=== PATIENT | male | born 1990 | race Caucasian/White ===

== ENCOUNTER 2017-05-15 11:28 | Inpatient (IN) | payer OTHER ==
[~2017-05-15] VITALS: Ht 172.7 cm; Wt 61.2 kg
[2017-05-15 13:00] VITALS: BP 124/75
--- NOTE | 2017-05-15 13:08 | NUR ---
INTAKE ASSESSMENT NOTE Patient is alert and orientated X4, stable and able to ambulate independently.Vitals signs are stable BP 124/75 HR 96 R 18 O2 99 TEMP 96.8. Patient is allergic to Trazodone. No history of seizures. Home medications brought with him (clonidine, escitalopram, and Elfolate). Patient is stable to come to the unit. Explanation of rules and protocols were explained. Patient verbalized understand.
--- NOTE | 2017-05-15 13:20 | NUR ---
ADMISSION NOTE VS:BP-124/75 P-96 T-96.1 O2-99 R-18 HEIGHT-5'8" WEIGHT -175 LB ALLERGIES-TRAZODONE Patient is a 26 year old male admitted to [facility] on 05/15/17 at 1308. patient is under the care of Dr. Benavides for opiate and benzo dependence. patient denies suicidal and homicidal ideations at this time. Patient denies being hospitalized in the past 30 days. patient denies chest pain and SOB> Patient reports using methamphetamine, heroin, phenibut, Xanax, and cocaine. upon assessment pts skin is intact. CIWA 13 COWS 16upon admission. patient has allergy to trazodone. He is alert and orientated X4 and steve to answer questions necessary for the admission process. Pt is a full code. Vital signs WNL, regular diet. Patient denies having seizures. patient denies having a PCP. Breathing is even and unlabored, spO2 is 99% on RA. Pt ambulates with a steady gait, pt reports feeling very tired and body aches. Patient has been living alone in a motel recently. Patient has a history of anxiety and depression. Patient refuses any vaccination. pt smokes approximately [address] benavides has been notified and has placed the client under observation. all needs have been met. pt has been orientated to room and unit. all safety measures in place per hospital policy. bed in lowest position, side rails up X2 and padded, call light within reach. will continue to monitor. SUBSTANCE ABUSE: meth 1 grm used for 2 year, last used 05/15/17 heroin 1 gram used for 10 years, last used 05/14/17 phenibut 15 gram for the past 8 years off/on last used 05/15/17 xanax 2 gm used on and off for the past few weeks, last used 05/14/17 cocaine one line, off/on for the past few years, last used 05/11/17
[2017-05-15] MEDS ORDERED: ESCI10TA PO (13:34)
[2017-05-15] MEDS ORDERED: LEVO15TA7 PO (13:34)
[2017-05-15] MEDS ORDERED: CLON0.1T PO (13:34)
[2017-05-15] MEDS ORDERED: GABA600T2 PO (13:37)
[2017-05-15] MEDS ORDERED: LORAZEPAM 1 MG TABLET PO PRN (13:45)
[2017-05-15] MEDS ORDERED: diphenhydrAMINE 50 MG CAPSULE PO PRN (13:45)
[2017-05-15] MEDS ORDERED: LORAZEPAM 2 MG/1 ML VIAL IM PRN (13:45)
[2017-05-15] MEDS ORDERED: THIAMINE HCL 200 MG/2 ML VIAL IM ONE (13:45)
[2017-05-15] MEDS ORDERED: MIRALAX 17 GM POWD.PACK PO PRN (13:45)
[2017-05-15] MEDS ORDERED: LOPERAMIDE HCL 2 MG CAPSULE PO PRN ×2 (13:45)
[2017-05-15] MEDS ORDERED: ACETAMINOPHEN 325 MG TABLET PO PRN (13:45)
[2017-05-15] MEDS ORDERED: MAG HYDROX/AL HYDROX/SIMETH 30 ML LIQUID UDC PO PRN (13:45)
[2017-05-15] MEDS ORDERED: ONDANSETRON 4 MG/2 ML VIAL IM PRN (13:45)
[2017-05-15] MEDS ORDERED: MAGNESIUM HYDROXIDE 30 ML LIQUID UDC PO PRN (13:45)
[2017-05-15 14:03] LABS: *AMPHETAMINE, URINE POSITIVE (NEGATIVE); *BARBITURATE, URINE NEGATIVE (NEGATIVE); *CANNABINOID, URINE NEGATIVE (NEGATIVE); *COCCAINE, URINE NEGATIVE (NEGATIVE); *OPIATE, URINE POSITIVE (NEGATIVE); *PHENCYCLIDINE SCREEN,URINE NEGATIVE (NEGATIVE)
[2017-05-15] MEDS: BACLOFEN 10 MG TABLET PO SCH ×2 (14:29→16:44)
[2017-05-15] MEDS: LORAZEPAM 1 MG TABLET PO SCH ×3 (14:29→20:09)
[2017-05-15] MEDS ORDERED: LIDOCAINE VISCUS 2% 15 ML UDC MM PRN (14:30)
[2017-05-15] MEDS: BUPRENORPHINE HCL 2 MG TAB.SUBL SL PRN ×3 (14:35→22:39)
--- NOTE | 2017-05-15 14:35 | NUR ---
PRN MEDICATION Patient given subutex 4mg for a COWS of 16. patient complaining of body aches and extremely anxious. will continue to monitor.
[2017-05-15 14:48] LABS: BASOPHILS % (AUTO) 0.7 % (0.0-2.0); EOSINOPHILS % (AUTO) 0.3 % (0.0-7.0); HEMATOCRIT 45.5 % (40-50); HEMOGLOBIN 15.3 G/DL (14.0-18.0); LYMPHOCYTES # (AUTO) 1.5 K/UL (0.8-4.8); LYMPHOCYTES % (AUTO) 22.8 % (20.5-51.5); MEAN CORPUSCULAR HEMOGLOBIN 30.5 UUG (27.0-31.0); MEAN CORPUSCULAR HGB CONC 34 g/dL (32.0-37.0); MEAN CORPUSCULAR VOLUME 90.7 FL (82.0-92.0); MONOCYTES # (AUTO) 0.5 K/UL (0.1-1.30); MONOCYTES % (AUTO) 7.1 % (0.0-11.0); NEUTROPHILS # (AUTO) 4.6 K/UL (1.8-8.9); NEUTROPHILS % (AUTO) 69.1 % (38.5-71.5); PLATELET COUNT (AUTO) 213 K/UL (150-450); RED BLOOD CELL COUNT(AUTO) 5.02 MIL/UL (4.7-6.1); WHITE BLOOD COUNT (AUTO) 6.6 K/UL (4.0-11.2)
[2017-05-15 14:59] LABS: ALANINE AMINOTRANSFERASE 33 U/L (16-63); ALKALINE PHOSPHATASE 83 U/L (50-136); ASPARTATE AMINOTRANSFERASE 27 U/L (15-37); BILIRUBIN,TOTAL 0.6 mg/dL (0.2-1.0); CARBON DIOXIDE 29 mmol/L (21-32); CHLORIDE 103 mmol/L (98-107); GLUCOSE 68 mg/dL (74-106); MAGNESIUM 2.1 mg/dL (1.8-2.4); POTASSIUM 3.8 mmol/L (3.5-5.1); TOTAL PROTEIN, SERUM 7.5 g/dL (6.4-8.2); UREA NITROGEN, BLOOD 12 mg/dL (7-18)
--- NOTE | 2017-05-15 15:05 | NUR ---
REASSESSMENT OF PRN MEDICATION Patient feeling less anxious. COWS remains at 16. will continue to monitor and give scheduled medications.
[2017-05-15 15:10] LABS: THYROID STIMULATING HORMONE 0.107 mIU/mL (0.358-3.740)
[2017-05-15 15:31] LABS: ETHANOL < 3 MG/DL (0-0)
[2017-05-15 16:00] VITALS: BP 132/60
--- NOTE | 2017-05-15 18:22 | NUR ---
PRN administration Pt noted to have a COWS of 16 and CIWA of 20. Administered PRN subutex and PRN ativan per MD order. Dr Salvador notified. Will continue to monitor pt.
[2017-05-15] MEDS: LORAZEPAM 1 MG TABLET PO PRN ×2 (18:24→22:33)
--- NOTE | 2017-05-15 19:06 | NUR ---
END OF SHIFT NOTE Patient is a 26 year old male admitted today around 1330. Patient is alert and orientated X4. He was admitted for detox from: meth, heroin, phenibut, Xanax, and cocaine. Vital signs have been stable throughout the day. Last COWS 16 CIWA 20. Patient expresses he has been hearing non-threatening voices. Subutex X2 and Ativan given for high COWS/CIWA. DR. Salvador notified. Patient is having moderate withdrawals as evidence of COWA/COWS scores. Patient is resting in bed. States he "hasn't slept in days". Patient is complaint with MDs orders and medications. Patient was seen by Dr. Salvador. All safety measures in place, call light within reach, bed locked and in lowest position. Patient denies any suicidal or homicidal thoughts. Will endorse to oncoming nurse.
--- NOTE | 2017-05-15 19:15 | NUR ---
START OF SHIFT Received 26 year old male patient admitted on 05/15/17 for Xanax, Phenibut, Heroin , Meth and Cocaine dependency. Pt is full code with allergy to Trazodone. He reports a PMHx of suicide attempt 3 years ago and MRSA in blood from [facility]. Pt reports using Xanax 2 gram daily for a few years. Last dose 05/14/17, Phenibut 15 grams daily for 8 years. Last dose 05/14/17. Heroin 1 gram daily for 10 years. Last dose 05/14/17. Methamphetamine 1 gram daily for 2 years. Last dose 05/15/17. And cocaine 1 line on and off for a few years. Last dose 05/11/17. Per endorsement, pt received Ativan and Subutex x2 for increased COWS of 16 and CIWA: 12. PT reported slight visual/auditory hallucinations but reports medications are effective in relieving symptoms. Pt is alert and oriented x4, breathing is even and unlabored. Safety measures in place. Will continue to monitor.
[2017-05-15 20:00] VITALS: BP 116/74
[2017-05-15] MEDS: CLONIDINE HCL 0.1 MG TABLET PO PRN (20:10)
--- NOTE | 2017-05-15 20:10 | NUR ---
PRN CLONIDINE Pt complains of anxiety, agitation, chills and sweats. PRN Clonidine administered as ordered. Breathing is even and unlabored. Respirations 16. Safety measures in place. Will monitor effectiveness.
--- NOTE | 2017-05-15 20:26 | NUR ---
PRN BENADRYL Pt complains of inability to sleep. PRN Benadryl administered as ordered. Breathing even and unlabored, safety measures in place. Will monitor effectiveness.
[2017-05-15] MEDS ORDERED: BUPRENORPHINE HCL 2 MG TAB.SUBL SL SCH (21:00)
--- NOTE | 2017-05-15 21:10 | NUR ---
PRN CLONIDINE REASSESSMENT Pt reports clonidine somewhat effective. Pt still reports anxiety/agitation. Respirations 16, breathing even and unlabored, safety measures in place. Will monitor.
--- NOTE | 2017-05-15 21:26 | NUR ---
PRN BENADRYL REASSESSMENT PRN Benadryl ineffective. Pt still awake but observed to be drowsy. Breathing is even and unlabored, safety measures in place. Will monitor.
--- NOTE | 2017-05-15 22:39 | NUR ---
PRN ATIVAN/SUBUTEX Pt complains of body aches, chills, and agitation. Pt observed with fine tremors and flushed face. PRN Ativan2 mg and Subutex 4 mg administered for COWS:13, CIWA:16. Breathing even and unlabored, safety measures in place. Will continue to monitor.
--- NOTE | 2017-05-15 23:39 | NUR ---
PRN ATIVAN/SUBUTEX REASSESSMENT PRN medications effective in relieving withdrawal symptoms as evidenced by decrease in COWS:9, CIWA:12. Pt still reports body aches and noted with fine tremors. Breathing is even and unlabored, safety measures in place. Will continue to monitor.
[2017-05-16] VITALS: BP 127/75
[2017-05-16 04:00] VITALS: BP 112/72
--- NOTE | 2017-05-16 04:00 | NUR ---
COWS/CIWA DEFERRED COWS/CIWA deferred d/t pt lying in bed with eyes closed noted to be asleep. Respirations 18, breathing is even and unlabored. Safety measures in place. Will continue to monitor.
--- NOTE | 2017-05-16 07:18 | NUR ---
END OF SHIFT Pt is a 26 year old male patient admitted on 05/15/17 for Xanax, Phenibut, Heroin , Meth and Cocaine dependency. Pt is full code with allergy to Trazodone. He reports a PMHx of suicide attempt 3 years ago and MRSA in blood from [facility]. At 2009 pt received PRN Clonidine for complaints of anixety, chills and sweats. At 2025 he received PRN Benadryl for inability to fall asleep. At 2238 he received PRN Subutex and Ativan for COWS:13, CIWA 16. He slept a total of 5hrs, Intake:1446mL Void:x2 BM:0 COWS:9, CIWA: 12. Pt remains alert and oriented x4, breathing is even and unlabored. Safety measures in place. Endorsed to oncoming shift.
--- NOTE | 2017-05-16 07:55 | NUR ---
START OF SHIFT: RECEIVED PT LAYING IN BED ASLEEP. RESPIRATIONS EVEN AND UNLABORED. PT ASKING TO LET HIM SLEEP. CALL SMITH IN REACH. BED LOCKED AND LOW . WILL CONTINUE TO MONITOR.
[2017-05-16 08:00] VITALS: BP 109/75
[2017-05-16] MEDS: BUPRENORPHINE HCL 2 MG TAB.SUBL SL SCH ×3 (09:00→21:29)
[2017-05-16] MEDS: THIAMINE HCL 100 MG TABLET PO SCH (09:00)
[2017-05-16] MEDS ORDERED: TUBERCULIN,PURIF.PROT.DERIV. 5 TU/0.1 ML TEST ID ONE ×2 (09:00→13:00)
[2017-05-16] MEDS: DOCUSATE SODIUM 250 MG CAPSULE PO SCH (09:00)
[2017-05-16] MEDS: MULTIVITAMINS,THERAPEUTIC TABLET PO SCH (09:00)
[2017-05-16] MEDS: LORAZEPAM 1 MG TABLET PO SCH ×3 (09:00→21:28)
[2017-05-16] MEDS: FOLIC ACID 1 MG TABLET PO SCH (09:00)
[2017-05-16] MEDS: BACLOFEN 10 MG TABLET PO SCH ×3 (09:00→17:45)
--- NOTE | 2017-05-16 09:05 | NUR ---
COWS AND CIWA DEFERRED. 0900 MEDS HELD PT IS ASLEEP.
[2017-05-16] MEDS ORDERED: LORAZEPAM 1 MG TABLET PO ONE (11:15)
[2017-05-16] MEDS ORDERED: BUPRENORPHINE HCL 2 MG TAB.SUBL SL ONE ×2 (11:15→15:45)
[2017-05-16 12:00] VITALS: BP 119/66
--- NOTE | 2017-05-16 13:00 | NUR ---
PT C/O ANXIETY,RESTLESSNESS ,SWEATS,BODY ACHES AND IRRITABILITY COWS 21 CIWA 10. MEDICATED PT WITH ONE TIME ORDER PER MD SINCE HE MISSED AM MEDS. ENCOURAGED FLUIDS AND REST. WILL CONTINUE TO MONITOR AND OFFER SUPPORT.
--- NOTE | 2017-05-16 15:53 | NUR ---
Therapist informed client of daily group psychotherapy times (11am and 3:30pm). Client expressed that he would consider attending.
[2017-05-16 16:00] VITALS: BP 130/79
--- NOTE | 2017-05-16 17:30 | NUR ---
ONE TIME ORDER FOR SUBUTEX SL PER MD PT SWALLOWED SUBUTEX INSTEAD OF LETTING IT DISSOLVE UNDER HIS TONGUE. PT STATE HE FEELS LIKE HE IS "FALLING A PART" POOR EYE CONTACT NOTED.OFFERED SUPPORT. WILL CONTINUE TO MONITOR
[2017-05-16] MEDS ORDERED: LORAZEPAM 1 MG TABLET PO PRN ×2 (18:00)
--- NOTE | 2017-05-16 19:11 | NUR ---
END OF SHIFT: PT SPENT SHIFT IN BED SLEEPING ON AND OFF. HE ATE VERY LITTLE BUT WAS COMPLIANT WITH INCREASED FLUIDS. HE IS TREMULOUS AND FLUSHED. HIS EYES ARE PARTIALLY CLOSED AND NODS OFF DURING CONVERSATION AND INSISTS HE IS NOT BEING MEDICATED ENOUGH FOR HIS S/S OF W/D. LAST COWS 13 CIWA 9. OFFERED SUPPORT. MADE AWARE OF PT'S COMPLAINTS. WILL PASS SHIFT REPORT TO ONCOMING COMMERCIAL ATTORNEY.
--- NOTE | 2017-05-16 19:15 | NUR ---
START OF SHIFT NOTE : Pt. is 26 year old male patient admitted on 05/15/17 for Xanax, Phenibut, Heroin , Meth and Cocaine dependency. Pt is full code with allergy to Trazodone. He reports a PMHx of suicide attempt 3 years ago and MRSA in blood from [facility]. PT reported slight visual/auditory hallucinations in the past but reports medications are effective in relieving symptoms. Pt is alert and oriented x4, RR=16, breathing is even and unlabored. PT SPENT SHIFT IN BED SLEEPING ON AND OFF. HE ATE VERY LITTLE BUT WAS COMPLIANT WITH INCREASED FLUIDS. HE IS TREMULOUS AND FLUSHED. HIS EYES ARE PARTIALLY CLOSED AND NODS OFF DURING CONVERSATION AND INSISTS HE IS NOT BEING MEDICATED ENOUGH FOR HIS S/S OF W/D. Safety measures in place. call light kept within reach. patient endorsed to hand spray operator nurse, all pertinent information discussed. will continue to monitor closely.
[2017-05-16 20:00] VITALS: BP 104/69
--- NOTE | 2017-05-16 21:00 | NUR ---
PRN SEROQUEL Pt complains of inability to sleep. PRN SEROQUEL administered as ordered. Safety measures in place. call light kept within reach. patient endorsed to employment legal assistant nurse, all pertinent information discussed. will continue to monitor closely.
[2017-05-16] MEDS: QUETIAPINE FUMARATE 100 MG TABLET PO PRN (21:28)
--- NOTE | 2017-05-16 22:00 | NUR ---
REASSESSMENT SEROQUEL Pt . is sleeping, RR=16, unlabored and even. safety measures in place. Will monitor effectiveness. Safety measures in place. call light kept within reach. patient endorsed to warehouse supervisor 3rd shift nurse, all pertinent information discussed. will continue to monitor closely.
--- NOTE | 2017-05-17 06:40 | NUR ---
END OF SHIFT NOTE : Pt. is 26 year old male patient admitted on 05/15/17 for Xanax, Phenibut, Heroin , Meth and Cocaine dependency. Pt is full code with allergy to Trazodone. He reports a PMHx of suicide attempt 3 years ago and MRSA in blood from [facility]. PT reported slight visual/auditory hallucinations in the past but reports medications are effective in relieving symptoms. Pt is alert and oriented x4, RR=16, breathing is even and unlabored. PT. WAS COMPLIANT WITH INCREASED FLUIDS. HIS EYES ARE PARTIALLY CLOSED AND NODS OFF DURING CONVERSATION . Pt remains compliant with the treatment plan. PRN SEROQUEL given during my shift. V/S remain WNL. RR=16, even and unlabored, lungs clear upon auscultation, abdomen soft and non- distended. Pt denies nausea, vomiting and diarrhea. LAST CIWA= 4 ,COWS=5 at 0400 , UIVMBE=1531 ml, voided x 2, slept 9 hours. Safety measures in place. call light kept within reach. patient endorsed to coin machine operator nurse, all pertinent information discussed. will continue to monitor closely.
--- NOTE | 2017-05-17 07:05 | NUR ---
Start of Shift Endorsement received from nightshift nurse. Pt is a 26 y/o male admitted for methamphetamine, heroin and phenobarbital dependence. Pt has been placed on a 5 day Ativan and 5 day Subutex taper. Pt is mildly withdrawing at this time AEB CIWA 4, COWS 5. Pt received PRN Seroquel during nightshift. VS WNL. Full Code. PT is alert and oriented x4. Pt is in STABLE condition at this time. Remains compliant with medication and diet regimen. All needs have been met, All safety measures in place per hospital policy. Bed in lowest position, side rails up x2, call-light within reach. Will continue to monitor
[2017-05-17 08:00] VITALS: BP 96/62
[2017-05-17 08:06] LABS: HEPATITIS B SURFACE AG Negative (Negative)
[2017-05-17] MEDS: MULTIVITAMINS,THERAPEUTIC TABLET PO SCH (08:53)
[2017-05-17] MEDS: BACLOFEN 20 MG TABLET PO SCH ×4 (08:53→20:27)
[2017-05-17] MEDS: DOCUSATE SODIUM 250 MG CAPSULE PO SCH (08:53)
[2017-05-17] MEDS: FOLIC ACID 1 MG TABLET PO SCH (08:53)
[2017-05-17] MEDS: THIAMINE HCL 100 MG TABLET PO SCH (08:53)
[2017-05-17] MEDS: LORAZEPAM 1 MG TABLET PO SCH ×4 (08:54→20:27)
[2017-05-17] MEDS ORDERED: BUPRENORPHINE HCL 2 MG TAB.SUBL SL SCH (09:00)
[2017-05-17] MEDS ORDERED: BACLOFEN 10 MG TABLET PO SCH (09:00)
--- NOTE | 2017-05-17 10:28 | NUR ---
Therapist advised client of group times. Client reported he will not be going today because he is still feeling sick.
[2017-05-17 12:00] VITALS: BP 113/75
[2017-05-17] MEDS ORDERED: IV D5W-0.45% NS 1000 ML BAG IV SCH (12:30)
[2017-05-17] MEDS ORDERED: LORAZEPAM 1 MG TABLET PO PRN ×2 (12:30)
[2017-05-17] MEDS ORDERED: BACLOFEN 20 MG TABLET PO SCH (13:00)
--- NOTE | 2017-05-17 13:07 | NUR ---
PRN Medications Administered PRN Motrin, Clonidine and Bentyl for cold chills, sweats, body aches and stomach cramps. Will re-assess.
[2017-05-17] MEDS: DICYCLOMINE HCL 20 MG TABLET PO PRN (13:10)
[2017-05-17] MEDS: CLONIDINE HCL 0.1 MG TABLET PO PRN (13:10)
[2017-05-17] MEDS: IBUPROFEN 600 MG TABLET PO PRN (13:10)
--- NOTE | 2017-05-17 13:37 | NUR ---
Medication re-assessment Medication were partially effective, PT rates pain 4/10 down from 7/10 before. PT reports that chills and sweats have not stopped. MD has been notified.
[2017-05-17] MEDS: BUPRENORPHINE HCL 2 MG TAB.SUBL SL SCH ×2 (15:07→20:26)
--- NOTE | 2017-05-17 15:23 | NUR ---
PRN Ativan Pt reports anxiety and upon evaluation has CIWA score of 7. Administered Ativan 1mg per protocol. Upon farther assessment the pt appears confused about where he is and reports not remembering eating lunch or receiving any medications. MD has been notified.
--- NOTE | 2017-05-17 15:45 | NUR ---
Pt re-assessment Pt reports decrease in anxiety to mild from moderate 6/10. PT recalls where he is but does not know what day of the week it is. Reinforced pt on medications he received and the medication schedule. PT able to do addition but not subtraction.
[2017-05-17 16:00] VITALS: BP 128/77
[2017-05-17] MEDS: GABAPENTIN 300 MG CAPSULE PO SCH ×2 (17:08→20:26)
[2017-05-17] MEDS: ESCITALOPRAM OXALATE 10 MG TABLET PO SCH (17:08)
--- NOTE | 2017-05-17 18:58 | NUR ---
End of Shift Endorsement given to nightshift nurse. Pt is a 26 y/o male admitted for methamphetamine, heroin and phenobarbital dependence. Pt has been placed on a 5 day Ativan and 5 day Subutex taper. Pt is moderately withdrawing at this time AEB CIWA 7, COWS 10. Pt received PRN Motrin, Clonidine, Ativan 1mg, Bentyl. PT has also started on Lexapro 10mg daily and 600mg Gabapentin x4 daily per Dr. Roy. Pt complains of body aches and requests more Subutex for his withdrawal symptoms. Dr. Salvador is aware. Intake: 1500ml, Void 3, BM x0. Pt did not participate in groups or activities. Educated pt on medication S/E and diet regimen. Encouraged pt to drink more fluids. VS WNL. Full Code. PT is alert and oriented x2. Pt is in STABLE condition at this time. Remains compliant with medication and diet regimen. All needs have been met, All safety measures in place per hospital policy. Bed in lowest position, side rails up x2, call-light within reach. Will continue to monitor
--- NOTE | 2017-05-17 19:15 | NUR ---
START OF SHIFT NOTE : Pt. is 26 year old male patient admitted on 05/15/17 for Xanax, Phenibut, Heroin , Meth and Cocaine dependency. Pt is full code with allergy to Trazodone. He reports a PMHx of suicide attempt 3 years ago and MRSA in blood from [facility]. PT reported slight visual/auditory hallucinations in the past but reports medications are effective in relieving symptoms. Pt is alert and oriented x3 (name, place, partially time), RR=16, breathing is even and unlabored. HE ATE VERY LITTLE BUT WAS COMPLIANT WITH INCREASED FLUIDS. HIS EYES ARE PARTIALLY CLOSED AND NODS OFF DURING CONVERSATION. He is more active and talk more as yesterday. Safety measures in place. call light kept within reach. patient endorsed to assistant casino shift manager nurse, all pertinent information discussed. will continue to monitor closely.
[2017-05-17 20:00] VITALS: BP 116/79
--- NOTE | 2017-05-18 06:49 | NUR ---
END OF SHIFT NOTE : Pt. is 26 year old male patient admitted on 05/15/17 for Xanax, Phenibut, Heroin , Meth and Cocaine dependency. Pt is full code with allergy to Trazodone. He reports a PMHx of suicide attempt 3 years ago and MRSA in blood from [facility]. PT reported slight visual/auditory hallucinations in the past but reports medications are effective in relieving symptoms. Pt is alert and oriented x3 (name, place, partially time), RR=16, breathing is even and unlabored. HE ATE VERY LITTLE BUT WAS COMPLIANT WITH INCREASED FLUIDS. HIS EYES ARE PARTIALLY CLOSED AND NODS OFF DURING CONVERSATION. He is more active and talk more as yesterday. Pt remains compliant with the treatment plan. No PRNs were given during my shift. V/S remain WNL. RR=16, even and unlabored, lungs clear upon auscultation, abdomen soft and non- distended. Pt denies nausea, vomiting and diarrhea. LAST CIWA=4 ,COWS=4 at 0400 , INTAKE= 855 ml, voided x 2, slept 10 hours. Safety measures in place. call light kept within reach. patient endorsed to business banker nurse, all pertinent information discussed. will continue to monitor closely.
--- NOTE | 2017-05-18 07:09 | NUR ---
Start of Shift Endorsement received from nightshift nurse. Pt is a 26 y/o male admitted for methamphetamine, heroin and phenobarbital dependence. Pt has been placed on a 5 day Ativan and 5 day Subutex taper. Pt is mildly withdrawing at this time AEB CIWA 4, COWS 4. Pt did not receive any PRN medications during nightshift. Pt reports sleeping 10 hours. VS WNL. Full Code. PT is alert and oriented x4. Pt is in STABLE condition at this time. Remains compliant with medication and diet regimen. All needs have been met, All safety measures in place per hospital policy. Bed in lowest position, side rails up x2, call-light within reach. Will continue to monitor
[2017-05-18 08:00] VITALS: BP 95/59
[2017-05-18] MEDS: GABAPENTIN 300 MG CAPSULE PO SCH ×4 (09:22→21:15)
[2017-05-18] MEDS: FOLIC ACID 1 MG TABLET PO SCH (09:22)
[2017-05-18] MEDS: BACLOFEN 20 MG TABLET PO SCH ×4 (09:22→21:15)
[2017-05-18] MEDS: LORAZEPAM 1 MG TABLET PO SCH ×3 (09:22→21:15)
[2017-05-18] MEDS: ESCITALOPRAM OXALATE 10 MG TABLET PO SCH (09:22)
[2017-05-18] MEDS: DOCUSATE SODIUM 250 MG CAPSULE PO SCH (09:22)
[2017-05-18] MEDS: BUPRENORPHINE HCL 2 MG TAB.SUBL SL SCH ×3 (09:22→21:15)
[2017-05-18] MEDS: THIAMINE HCL 100 MG TABLET PO SCH (09:22)
[2017-05-18] MEDS: MULTIVITAMINS,THERAPEUTIC TABLET PO SCH (09:22)
[2017-05-18 12:00] VITALS: BP 105/62
[2017-05-18] MEDS ORDERED: BUPRENORPHINE HCL 2 MG TAB.SUBL SL ONE (12:45)
[2017-05-18] MEDS: DICYCLOMINE HCL 20 MG TABLET PO PRN (15:09)
[2017-05-18] MEDS: IBUPROFEN 600 MG TABLET PO PRN (15:09)
--- NOTE | 2017-05-18 15:10 | NUR ---
PRN Medications Administered PRN Motrin, Clonidine, Imodium and Zofran for reported diarrhea, nausea, chills and 5/10 pain.
[2017-05-18] MEDS: ONDANSETRON ODT 4 MG TAB.RAPDIS SL PRN (15:11)
[2017-05-18] MEDS: CLONIDINE HCL 0.1 MG TABLET PO PRN (15:12)
--- NOTE | 2017-05-18 15:50 | NUR ---
Medication Re-assessment Pt reports that nausea has ceased at this time, He has not experienced any more episodes of diarrhea, body aches down from 6/10 to 4/10 and chills have stopped. PT reports feeling drowsy. Medications were effective.
[2017-05-18 16:00] VITALS: BP 107/74
--- NOTE | 2017-05-18 18:50 | NUR ---
End of Shift Endorsement given to nightshift nurse. Pt is a 26 y/o male admitted for methamphetamine, heroin and phenobarbital dependence. Pt has been placed on a 5 day Ativan and 5 day Subutex taper. Pt is moderately withdrawing at this time AEB CIWA 7, COWS 7 at 1600. Pt received PRN Motrin, Clonidine, Zofran, Imodium and Bentyl. Pt continues to present with symptoms of being forgetful. Pt received One Subutex per Dr. Salvador. PT continues to ask for more Subutex and Ativan despite VS WNL and COWS and CIWA score below 8. Dr. Salvador is aware. Intake: 2130ml, Void 2, BM x2. Pt did not participate in groups or activities. Reinforced Education on medication S/E and diet regimen. Encouraged pt to drink more fluids. VS WNL. Full Code. PT is alert and oriented x2. Pt is in STABLE condition at this time. Remains compliant with medication and diet regimen. All needs have been met, All safety measures in place per hospital policy. Bed in lowest position, side rails up x2, call-light within reach. Will continue to monitor
--- NOTE | 2017-05-18 19:15 | NUR ---
START OF SHIFT NOTE : Pt. is 26 year old male patient admitted on 05/15/17 for Xanax, Phenibut, Heroin , Meth and Cocaine dependency. Pt is full code with allergy to Trazodone. He reports a PMHx of suicide attempt 3 years ago and MRSA in blood from [facility]. PT reported slight visual/auditory hallucinations in the past but reports medications are effective in relieving symptoms. Pt is alert and oriented x3 (name, place, partially time), RR=16, breathing is even and unlabored. HE ATE VERY LITTLE BUT WAS COMPLIANT WITH INCREASED FLUIDS. HIS EYES ARE PARTIALLY CLOSED AND NODS OFF DURING CONVERSATION. He is more active and talk more as yesterday. Safety measures in place. call light kept within reach. patient endorsed to shift supervisor rn nurse, all pertinent information discussed. will continue to monitor closely.
[2017-05-18 20:00] VITALS: BP 105/55
--- NOTE | 2017-05-19 06:41 | NUR ---
END OF SHIFT NOTE : Pt. is 26 year old male patient admitted on 05/15/17 for Xanax, Phenibut, Heroin , Meth and Cocaine dependency. Pt is full code with allergy to Trazodone. He reports a PMHx of suicide attempt 3 years ago and MRSA in blood from [facility]. PT reported slight visual/auditory hallucinations in the past but reports medications are effective in relieving symptoms. Pt is alert and oriented x3 (name, place, partially time), RR=16, breathing is even and unlabored. He is more active and talk more as yesterday. Pt remains compliant with the treatment plan. No PRNs were given during my shift. V/S remain WNL. RR=16, even and unlabored, lungs clear upon auscultation, abdomen soft and non- distended. Pt denies nausea, vomiting and diarrhea. LAST CIWA=4 ,COWS=4 at 0400 , VETWRT=479 ml, voided x 2, slept 10 hours. Safety measures in place. call light kept within reach. patient endorsed to material handler 2nd shift nurse, all pertinent information discussed. will continue to monitor closely.
[2017-05-19 08:00] VITALS: BP 104/66
[2017-05-19] MEDS ORDERED: LORAZEPAM 1 MG TABLET PO SCH (09:00)
[2017-05-19] MEDS ORDERED: BUPRENORPHINE HCL 2 MG TAB.SUBL SL SCH (09:00)
[2017-05-19] MEDS: DOCUSATE SODIUM 250 MG CAPSULE PO SCH (09:25)
[2017-05-19] MEDS: MULTIVITAMINS,THERAPEUTIC TABLET PO SCH (09:25)
[2017-05-19] MEDS: FOLIC ACID 1 MG TABLET PO SCH (09:25)
[2017-05-19] MEDS: GABAPENTIN 300 MG CAPSULE PO SCH ×4 (09:25→20:56)
[2017-05-19] MEDS: BUPRENORPHINE HCL 2 MG TAB.SUBL SL SCH ×3 (09:26→16:19)
[2017-05-19] MEDS: BACLOFEN 20 MG TABLET PO SCH ×4 (09:26→20:56)
[2017-05-19] MEDS: ESCITALOPRAM OXALATE 10 MG TABLET PO SCH (09:26)
[2017-05-19] MEDS: THIAMINE HCL 100 MG TABLET PO SCH (09:26)
[2017-05-19] MEDS: LEVOMEFOLATE PO SCH (09:27)
[2017-05-19 12:00] VITALS: BP 135/92
[2017-05-19] MEDS: CLONIDINE HCL 0.1 MG TABLET PO PRN (14:48)
--- NOTE | 2017-05-19 14:51 | NUR ---
PRN CLONIDINE GIVEN FOR REPORTED S/S OF W/D WHICH INCLUDWE CHILLS,BODY ACHES AND ANXIETY. WILL MONITOR EFFECTIVENESS.
[2017-05-19 16:00] VITALS: BP 120/81
--- NOTE | 2017-05-19 19:07 | NUR ---
END OF SHIFT: PT SPENT SHIFT IN BED SLEEPING ON AND OFF. HE ATE 100% OF MEALS TODAY. HE CONTINUES ON ATIVAN/SUBUTEX TAPER. CIWA 4 COWS 4 HIS FACE IS FLUSHED. HE REPORTS ANXIETY AND IS AFFECT IS INCONGRUENT. PRN CLONIDINE GIVEN AND MILDLY EFFECTIVE. HE CONTINUES TO INSIST HE IS NOT BEING MEDICATED EFFECTIVELY FOR HIS S/S OF W/D. . MADE AWARE. MD STATES HE WILL COME TO UNIT AND ASSESS PT LATER. WILL PASS SHIFT REPORT TO ONCOMING SHIPS OR BARGES LOADER.
--- NOTE | 2017-05-19 19:30 | NUR ---
START OF SHIFT Pt is a 26 y/o male admitted for methamphetamine, heroin and phenobarbital dependence. Pt has been placed on a 5 day Ativan and 5 day Subutex taper. Last CIWA 4, COWS 4. VS WNL. Full Code. PT is alert and oriented x4. Pt is in STABLE condition at this time. Remains compliant with medication and diet regimen. All needs have been met, All safety measures in place per hospital policy. Bed in lowest position, side rails up x2, call-light within reach. Will continue to monitor
[2017-05-19 20:00] VITALS: BP 116/66
[2017-05-19] MEDS: IBUPROFEN 600 MG TABLET PO PRN (20:56)
[2017-05-19] MEDS: QUETIAPINE FUMARATE 100 MG TABLET PO PRN (20:56)
--- NOTE | 2017-05-19 21:00 | NUR ---
PRN MEDS PRN MOTRIN AND SEROQUEL GIVEN ORDERED FOR GENERAL BODYACHE AND INSOMNIA RESPECTIVELY.WILL MONITOR.
--- NOTE | 2017-05-19 22:00 | NUR ---
PRN F/U PRN MEDS ARE EFFECTIVE.PT IS PEACEFULLY SLEEPING IN BED,NO S/S OF DISTRESS NOTED,WILL CONTINUE TO MONITOR.
--- NOTE | 2017-05-20 | NUR ---
V/S REFUSED / COWS and CIWA DEFERRED Pt is peacefully sleeping in bed,breathing is even and non labored,no s/s of distress noted,all safety measures in place,will continue to monitor.
--- NOTE | 2017-05-20 06:43 | NUR ---
END OF SHIFT Pt is a 26 y/o male admitted for methamphetamine, heroin and phenobarbital dependence. Pt has been placed on a 5 day Ativan and 5 day Subutex taper. Last CIWA 2, COWS 2. VS WNL. Full Code. PT is alert and oriented x4. Pt is in STABLE condition at this time.PRN Motrin and Seroquel were given with good effect.Pt slept 7 hrs,fluid intake was 1350 mls,voided x 1. Remains compliant with medication and diet regimen. All needs have been met, All safety measures in place per hospital policy. Bed in lowest position, side rails up x2, call-light within reach. Will continue to monitor
--- NOTE | 2017-05-20 07:00 | NUR ---
Start of Shift Notes: Received patient in his room. Alert and oriented x 4. Able to make her needs known. Respirations even and unlabored. No SOB noted. Skin warm and dry to touch. Abdomen soft and non-distended with (+) BS in all 4 quadrants. No complains of N/V/D or constipation noted. Voids independently. Ambulatory with steady gait. Patient is a 26 year old male admitted for opiate and methamphetamine dependence who was placed on PRNs at this time. MD to assess taper in AM. Has past medical hx of suicidal attempt x 3 years. Allergic to Trazodone. FULL CODE. Regular diet. On fall and seizure precautions. Educated patient on his current plan of care for the day and his medication regimen. Slept for 8 hours. Last COWS 2/CIWA 2. Will continue to monitor closely.
[2017-05-20 08:00] VITALS: BP 100/58
[2017-05-20] MEDS: BACLOFEN 20 MG TABLET PO SCH ×4 (08:24→21:23)
[2017-05-20] MEDS: ONDANSETRON ODT 4 MG TAB.RAPDIS SL PRN ×3 (08:25→21:39)
[2017-05-20] MEDS: DICYCLOMINE HCL 20 MG TABLET PO PRN (08:26)
[2017-05-20] MEDS: GABAPENTIN 300 MG CAPSULE PO SCH ×4 (08:26→21:23)
[2017-05-20] MEDS: MULTIVITAMINS,THERAPEUTIC TABLET PO SCH (08:26)
[2017-05-20] MEDS: LEVOMEFOLATE PO SCH (08:26)
[2017-05-20] MEDS: THIAMINE HCL 100 MG TABLET PO SCH (08:26)
[2017-05-20] MEDS: IBUPROFEN 600 MG TABLET PO PRN ×3 (08:26→21:39)
[2017-05-20] MEDS: ESCITALOPRAM OXALATE 10 MG TABLET PO SCH (08:26)
[2017-05-20] MEDS: DOCUSATE SODIUM 250 MG CAPSULE PO SCH (08:26)
[2017-05-20] MEDS: BUPRENORPHINE HCL 2 MG TAB.SUBL SL SCH ×2 (08:26→21:23)
[2017-05-20] MEDS: FOLIC ACID 1 MG TABLET PO SCH (08:26)
--- NOTE | 2017-05-20 08:26 | NUR ---
PRN Bentyl/Zofran/Motrin given: Patient noted with complain of abdominal cramps, generalized aching, and nausea. Educated patient on what meds he is going to take for the day. Patient appeared upset that he is no longer taking Ativan. Support provided. Medicated patient with Bentyl, Zofran and Motrin as ordered. Will monitor for effectiveness.
[2017-05-20] MEDS ORDERED: BUPRENORPHINE HCL 2 MG TAB.SUBL SL SCH (09:00)
--- NOTE | 2017-05-20 09:26 | NUR ---
Re-assessment: Per patient, PRN Zofran was effective in reducing nausea, less generalized muslce aches noted, and abdominal cramps relieved.
[2017-05-20 12:00] VITALS: BP 112/80
--- NOTE | 2017-05-20 13:59 | NUR ---
Gabapentin and Baclofen at 1300 not administered: Patient is seen in bed, laying down. Eyes closed. Breathing even and unlabored. VS stable. Held Baclofen and Gabapentin at this time. Dr. Salvador aware.
[2017-05-20] MEDS ORDERED: LORAZEPAM 1 MG TABLET PO PRN (15:30)
[2017-05-20 16:00] VITALS: BP 101/60
--- NOTE | 2017-05-20 17:22 | NUR ---
PRN Motrin 400 mg PO and Zofran 4 mg ODT given: Patient noted with complain of headache 5/10 and nausea. Medicated patient with Motrin 400 mg PO and Zofran 4 mg ODT as ordered. Will monitor for effectiveness.
--- NOTE | 2017-05-20 18:22 | NUR ---
Re-assessment: Per patient, PRN Motrin and Zofran were effective in reducing headache and nausea.
--- NOTE | 2017-05-20 19:00 | NUR ---
End of Shift notes: Patient is a 26 year old male admitted for methamphetamine, opiate, phenibut, BZO and cocaine dependence who was placed on a 5-day Ativan and 5-day Subutex taper. Tolerating well. No adverse reactions noted. Has past medical hx of MRSA in the blood from an abscess and suicide attempt 3 years ago. Denies S/I or H/I noted. VS monitored closely. No significant abnormalities noted. Prior to admission, patient was using 1 gram of methamphetamine, 1 gram of Heroin, 15 grams of phenibut, 2 grams of Xanax and 1 line of cocaine. Withdrawal symptoms were closely monitored. Initial COWS 9, CIWA 7 patient presented with chills, hot flashes, cold sweats, muscle aches, and nausea and abdominal cramps. Medicated patient with Bentyl, Motrin and Zofran at 0826 with help after 1 hour. Then at 1722, medicated patient with Zofran 4 mg and Motrin 400 mg PO at 1722 with help after 1 hour. Last COWS 4/CIWA3. Patient slept for most of the shift and did not participate in group although encouraged. Patient tends to seek more meds than ordered. Support provided. Oral fluids encouraged. All needs met and attended. Will continue to monitor closely.
--- NOTE | 2017-05-20 19:30 | NUR ---
START OF SHIFT Pt is a 26 y/o male admitted for methamphetamine, heroin and phenobarbital dependence. Pt has been placed on a 5 day Ativan and 5 day Subutex taper. Last CIWA 3, COWS 4. V/S have been stable.Pt is on Full Code status.Allergic to Trazodone. PT is alert and oriented x4. Pt is in STABLE condition at this time. Remains compliant with medication and diet regimen. All needs have been met, All safety measures in place per hospital policy. Bed in lowest position, side rails up x2, call-light within reach. Will continue to monitor.
[2017-05-20 20:00] VITALS: BP 113/66
--- NOTE | 2017-05-20 21:40 | NUR ---
PRN MEDS PRN MOTRIN GIVEN ORDERED FOR C/O GENERAL BODYACHE,PAIN LEVEL 5/10.PRN ZOFRAN GIVEN ORDERED FOR C/O NAUSEA.NO C/O VOMITING NOTED.WILL MONITOR FOR EFFECTIVENESS.
--- NOTE | 2017-05-20 22:40 | NUR ---
PRN F/U PRN MEDS EFFECTIVE IN RELIEVING PAIN AND NAUSEA.
--- NOTE | 2017-05-21 | NUR ---
V/S REFUSED.COWS/CIWA DEFERRED Pt refused to be woken up for V/S.COWS/CIWA deferred due to PT sleeping.All safety measures in place per hospital policy,call light within reach,bed locked in lowest position,side rails up x 2,will continue to monitor.
--- NOTE | 2017-05-21 06:45 | NUR ---
END OF SHIFT Pt is a 26 y/o male admitted for methamphetamine, heroin and phenobarbital dependence. Pt has been placed on a 5 day Ativan and 5 day Subutex taper. Last CIWA 3, COWS 4. VS WNL. Full Code.Allergic to Trazodone. PT is alert and oriented x4. Pt is in STABLE condition at this time. Remains compliant with medication and diet regimen.Pt slept 6 hrs,fluid intake was 1710 mls,voided x 2.PRN Motrin and Zofran given with good effect. All needs have been met, All safety measures in place per hospital policy. Bed in lowest position, side rails up x2, call-light within reach. Will continue to monitor.
--- NOTE | 2017-05-21 07:10 | NUR ---
Start of Shift Report from the night nurse: pt is a 26 y/o male here for Opiate r/t Heroin 1g/d, Benzo r/t Xanax 2mg/d, Phenobarbital 15mg/d, Cocaine "1 line"/d; and Methamphetamine 1g/d; 5 day Ativan and 5 day Subutex tapers started 05/16/17. Pt is as full code, Regular Diet, allergic to Trazodone, fall and seizure precautions ordered. Hhx: Attempted suicide 3 years ago, abscesses with MRSA, relapses. MRSA swab sent so I will f/u with results. V/S stable. Tracks on BUE'S and intact with no open wounds present. PRN Motrin and Zofran given last night. No abnormal labs or new orders endorsed. Last COWS 4 CIWA 2. Pt is currently asleep in room. Will cont. to monitor the pt.
[2017-05-21 08:00] VITALS: BP 111/57
[2017-05-21] MEDS: DOCUSATE SODIUM 250 MG CAPSULE PO SCH (09:00)
[2017-05-21] MEDS ORDERED: BUPRENORPHINE HCL 2 MG TAB.SUBL SL SCH (09:00)
[2017-05-21] MEDS: THIAMINE HCL 100 MG TABLET PO SCH (09:39)
[2017-05-21] MEDS: LEVOMEFOLATE PO SCH (09:39)
[2017-05-21] MEDS: ESCITALOPRAM OXALATE 10 MG TABLET PO SCH (09:39)
[2017-05-21] MEDS: FOLIC ACID 1 MG TABLET PO SCH (09:39)
[2017-05-21] MEDS: BACLOFEN 20 MG TABLET PO SCH ×4 (09:39→20:00)
[2017-05-21] MEDS: MULTIVITAMINS,THERAPEUTIC TABLET PO SCH (09:40)
[2017-05-21] MEDS: GABAPENTIN 300 MG CAPSULE PO SCH ×4 (09:40→20:00)
[2017-05-21 12:00] VITALS: BP 111/64
--- NOTE | 2017-05-21 13:10 | NUR ---
PRN Medication Administration Pt is very anxious, restless with pacing in room and is irritable; PRN Vistaril 50mg given as ordered. Will reassess in 1H.
[2017-05-21] MEDS: HYDROXYZINE PAMOATE 25 MG CAPSULE PO PRN ×2 (13:13→20:01)
--- NOTE | 2017-05-21 14:00 | NUR ---
Reassessment Pt is in room resting in bed, eating a snack and watching T.V. with no restlessness or irritability present; Vistaril is effective. Will cont. to monitor the pt.
[2017-05-21] MEDS ORDERED: GABAPENTIN 300 MG CAPSULE PO SCH (15:30)
[2017-05-21 16:00] VITALS: BP 117/69
[2017-05-21 17:21] LABS: *AMPHETAMINE, URINE NEGATIVE (NEGATIVE); *BARBITURATE, URINE NEGATIVE (NEGATIVE); *CANNABINOID, URINE NEGATIVE (NEGATIVE); *COCCAINE, URINE NEGATIVE (NEGATIVE); *OPIATE, URINE NEGATIVE (NEGATIVE); *PHENCYCLIDINE SCREEN,URINE NEGATIVE (NEGATIVE)
--- NOTE | 2017-05-21 19:36 | NUR ---
End of Shift Report to night nurse: pt is a 26 y/o male here for Opiate r/t Heroin 1g/d, Benzo r/t Xanax 2mg/d, Phenobarbital 15mg/d, Cocaine "1 line"/d; and Methamphetamine 1g/d; 5 day Ativan and 5 day Subutex tapers started 05/16/17. Pt is as full code, Regular Diet, allergic to Trazodone, fall and seizure precautions ordered. Hhx: Attempted suicide 3 years ago, abscesses with MRSA, relapses. MRSA swab sent so I will f/u with results. V/S stable. Tracks on BUE'S and intact with no open wounds present. PRN Vistaril 50mg given at 1310p. New orders for D/C tomorrow. No hallucinations, delusions, or suicidal ideations noted. Pt participated in the group therapy and activities during my shift. Last COWS 2 CIWA 2.
--- NOTE | 2017-05-21 19:50 | NUR ---
Start of Shift Patient is a 26-year old, male, admitted for Heroin, Xanax, Phenobarbital, Cocaine and Methamphetamine Dependence. With Hx of Attempted suicide 3 years ago, abscess with MRSA, relapses. Pt placed on 5-day Ativan and 5-day Subutex tapers, started 05/16/17. Pt is Full Code, on Regular Diet and with allergies to Trazodone. Pt is AAOx4 and no SOB noted. Pt is ambulatory with steady gait and with intact skin. With track lombardo on BUE. No suicidal ideation nor homicidal ideation at this time. Fall, universal, safety and seizure prec in place. Call light within reach. Latest COWS=5, CIWA=4. Will continue to monitor.
[2017-05-21 20:00] VITALS: BP 128/79
--- NOTE | 2017-05-21 20:01 | NUR ---
RN note PRN Vistaril Pt c/o feeling anxious and noted to be pacing on the hallway. Administered Vistaril 50 mg PO as ordered. Will reassess.
--- NOTE | 2017-05-21 21:05 | NUR ---
RN note reassess Pt verbalized decreased level of anxiety. Pt awake on bed watching TV and with no SOB noted.
[2017-05-21] MEDS: QUETIAPINE FUMARATE 100 MG TABLET PO PRN (21:49)
[2017-05-21] MEDS: CLONIDINE HCL 0.1 MG TABLET PO PRN (21:49)
--- NOTE | 2017-05-21 21:50 | NUR ---
RN note PRN Clonidine and Seroquel Pt c/o of increasing anxiety, getting restless and sleeplessness. Administered Clonidine 0.1 mg PO and Seroquel 100 mg PO. Will reassess.
--- NOTE | 2017-05-21 22:55 | NUR ---
RN note reassess Pt asleep on bed, no SOB nor facial grimacing noted.
[2017-05-22] VITALS: BP 122/74
[2017-05-22 04:00] VITALS: BP 118/69
--- NOTE | 2017-05-22 07:20 | NUR ---
Start of Shift Report from the night nurse: pt is a 26 y/o male here for Opiate r/t Heroin 1g/d, Benzo r/t Xanax 2mg/d, Phenobarbital 15mg/d, Cocaine "1 line"/d; and Methamphetamine 1g/d; 5 day Ativan and 5 day Subutex tapers started 05/16/17. Pt is as full code, Regular Diet, allergic to Trazodone, fall and seizure precautions ordered. Hhx: Attempted suicide 3 years ago, abscesses with MRSA, relapses. MRSA swab sent so I will f/u with results. V/S stable. Tracks on BUE'S and intact with no open wounds present. PRN Vistaril and Clonidine given last night. Pt is getting d/c'd today and the Dr. needs to do the d/c summary progress notes and orders. Last COWS 2 CIWA 2. Pt is currently asleep in room. Will cont. to monitor the pt.
--- NOTE | 2017-05-22 07:25 | NUR ---
End of Shift Patient is a 26-year old, male, admitted for Heroin, Xanax, Phenobarbital, Cocaine and Methamphetamine Dependence. With Hx of Attempted suicide 3 years ago, abscess with MRSA, relapses. Pt placed on 5-day Ativan and 5-day Subutex tapers, started 05/16/17. Pt is Full Code, on Regular Diet and with allergies to Trazodone. Pt is AAOx4 and no SOB noted. Pt is ambulatory with steady gait and with intact skin. With track lombardo on BUE. No suicidal ideation nor homicidal ideation at this time. Fall, universal, safety and seizure prec in place. Call light within reach. Latest COWS=2, CIWA=2, slept for 6 hours. Endorsed to AM shift nurse for continuity of care.
[2017-05-22 08:00] VITALS: BP 105/65
[2017-05-22] MEDS: LEVOMEFOLATE PO SCH (09:00)
[2017-05-22] MEDS: DOCUSATE SODIUM 250 MG CAPSULE PO SCH (09:00)
[2017-05-22] MEDS ORDERED: GABA-534 PO (09:17)
[2017-05-22] MEDS ORDERED: BACL20TA PO (09:17)
[2017-05-22] MEDS ORDERED: DICY20TA28 PO (09:17)
[2017-05-22] MEDS ORDERED: QUET100T PO (09:17)
[2017-05-22] MEDS ORDERED: ESCI10TA PO (09:17)
[2017-05-22] MEDS ORDERED: IBUP-1955 PO (09:17)
[2017-05-22] MEDS ORDERED: HYDR-3895 PO (09:17)
[2017-05-22] MEDS ORDERED: CLON0.1T14 PO (09:17)
[2017-05-22] MEDS ORDERED: ONDA4TAB11 SL (09:17)
[2017-05-22] MEDS: GABAPENTIN 300 MG CAPSULE PO SCH (09:27)
[2017-05-22] MEDS: ESCITALOPRAM OXALATE 10 MG TABLET PO SCH (09:27)
[2017-05-22] MEDS: MULTIVITAMINS,THERAPEUTIC TABLET PO SCH (09:27)
[2017-05-22] MEDS: BACLOFEN 20 MG TABLET PO SCH (09:27)
[2017-05-22] MEDS: FOLIC ACID 1 MG TABLET PO SCH (09:27)
--- NOTE | 2017-05-22 09:50 | NUR ---
PRN Medication Administration Pt c/o mild KIRBY 02/07 pain; PRN Tylenol 650mg given as ordered. Will reassess in 30 minutes to 1H before d/c. Addendum: 05/22/17 at 1220 by DANIELLA SANCHEZ RN Medication Non-Administration Pt refused elfolate and colace.
[2017-05-22] MEDS: THIAMINE HCL 100 MG TABLET PO SCH (09:51)
--- NOTE | 2017-05-22 10:39 | NUR ---
Discharge and Reassessment Pt is A&Ox 4, ambulatory independently. Features symmetrical, PERRLA 3mm, no dizziness, and pt states that the KIRBY was relieved with effective Tylenol. V/S stable & pt denies chest pain. No acute respiratory distress or SOB present. No w/d s/sx present. Pt voided. Pt given belongings, home medication, written Rx, and d/c summary packet. Pt chaperoned with a [employer]STRU[employer] to the [facility] [facility] [employer] [facility] and transported to [facility]
== END 2017-05-22 10:39 | disposition home or self-care (01) | DRG 895 ==
LOC: SRC 12:17
PROVIDERS: ADMIT Internal Medicine; ATTEND Internal Medicine
PROC: HZ2ZZZZ Detoxification Services for Substance Abuse Treatment (ICD-10-PCS; principal; 2017-05-15)
PROC: HZ31ZZZ Individual Counseling for Substance Abuse Treatment, Behavioral (ICD-10-PCS; 2017-05-17)
DX: F13.230 Sedative, hypnotic or anxiolytic dependence with withdrawal, uncomplicated (principal); F11.23 Opioid dependence with withdrawal; F15.120 Other stimulant abuse with intoxication, uncomplicated; Z59.0 Homelessness; Z91.5 Personal history of self-harm; E07.81 Sick-euthyroid syndrome; E86.0 Dehydration; Z79.899 Other long term (current) drug therapy; F17.210 Nicotine dependence, cigarettes, uncomplicated
CPT/HCPCS: 36415; 80307; 80324; 80361; 83735; 84443; 85025; 86580; 86592; 86705; 86803; 87340; 87806; A4663; G0480; J3411; Q0162; Q0163